=== PATIENT | female | born 1985 | race Two or more races ===

== ENCOUNTER 2022-04-06 19:57 | Emergency (ER) | payer SELFPAY ==
[~2022-04-06] VITALS: Ht 167.6 cm; Wt 76.0 kg
[2022-04-06] MEDS ORDERED: LORazepam 2MG/ML-1ML VIAL IM ONE (22:00)
[2022-04-06 22:22] LABS: Urine Blood TRACE /uL (Negative); Urine Specific Gravity 1.025 (1.001-1.035)
[2022-04-06 23:05] LABS: Urine WBC 8 /hpf (0 - 5)
[2022-04-06 23:06] LABS: Urine Bacteria FEW /hpf (None Seen)
[2022-04-06 23:29] LABS: Basophils # (auto) 0.1 10 ^3/uL (0-0.2); Eosinophils # (auto) 0.3 10 ^3/uL (0-0.8); Eosinophils % (auto) 3.9 % (0.0-7.0); Hematocrit 43.5 % (36.0-46.0); Hemoglobin 14.4 g/dL (12.2-16.2); Lymphocytes # (auto) 2.4 10 ^3/uL (0.4-5.4); Lymphocytes % (auto) 30.1 % (10.0-50.0); Mean Corpuscular Hemoglobin 29.5 pg (28.0-32.0); Mean Corpuscular Volume 89.3 fL (80.0-100.0); Monocytes # (auto) 0.5 10 ^3/uL (0-1.3); Monocytes % (auto) 6.1 % (0.0-12.0); Neutrophils # (auto) 4.8 10 ^3/uL (1.6-8.6); Neutrophils % (auto) 58.9 % (37.0-80.0); Red Blood Cells 4.87 10^6/uL (4.0-5.20); White Blood Cell 8.1 10^3/uL (4.4-10.8)
[2022-04-06 23:45] LABS: Albumin 4.2 g/dL (3.4-5.0); Calcium 9.4 mg/dL (8.5-10.1)
[2022-04-06 23:48] LABS: BUN/Creatinine Ratio 23.2; Bilirubin, Total 0.9 mg/dL (0.2-1.0); Total Protein 7.8 g/dL (6.4-8.2)
[2022-04-07] MEDS ORDERED: NITR-87 PO (05:04)
[2022-04-07 05:18] VITALS: BP 129/86
== END 2022-04-07 05:24 | disposition home or self-care (01) ==
LOC: ER 19:57
DX: R07.89 Other chest pain (principal); N39.0 Urinary tract infection, site not specified; Z79.899 Other long term (current) drug therapy
CPT/HCPCS: 36415; 71046; 80053; 81001; 83880; 84484; 85025; 93005